=== PATIENT | female | born 1980 | race Caucasian/White ===

== ENCOUNTER 2016-11-23 08:15 | Inpatient (IN) | payer BC ==
[2016-11-20 09:32] LABS: BASOPHILS 0.4 %; BASOPHILS ABSOLUTE 0.03 10/3/uL (0.0-0.16); EOSINOPHILS 0.9 %; EOSINOPHILS ABSOLUTE 0.06 10/3/uL (0.0-0.53); HEMATOCRIT 36.6 % (36.0-48.0); HEMOGLOBIN 12.1 g/dL (12.0-16.0); IMMATURE GRANULOCYTES 0.1 %; IMMATURE GRANULOCYTES ABSOLUTE 0.01 10/3/uL (0.0-0.11); LYMPHOCYTES 29.5 %; LYMPHOCYTES ABSOLUTE 2.02 10/3/uL (0.67-4.30); MEAN CORPUS HGB CONC 33.1 g/dL (32.0-36.0); MEAN CORPUSCULAR HEMOGLOB 29.7 pg (26.0-34.0); MEAN CORPUSCULAR VOLUME 89.7 fL (80-100); MEAN PLATELET VOLUME 12.2 fL (9.2-13.0); MONOCYTES 8.5 %; MONOCYTES ABSOLUTE 0.58 10/3/uL (0.21-1.20); NEUTROPHILS 60.6 %; NEUTROPHILS ABSOLUTE 4.15 10/3/uL (2.02-8.40); PLATELET COUNT 320 10/3/uL (150-400); RBC DISTRIBUTION WIDTH 14.1 % (12.0-16.0); RED CELL COUNT 4.08 10/6/uL (4.0-5.6); WHITE BLOOD CELLS 6.9 10/3/uL (4.5-10.5)
[2016-11-20 09:33] LABS: MANUAL DIFF NO %
[2016-11-20 09:44] LABS: INTERNATIONAL NORMAL RATI 1.1 UNITS (-); PARTIAL THROMBO TIME 29.8 SEC (22.5-37.2); PROTIME (NOT ORD) 13.7 SEC (12.0-14.5)
[2016-11-20 10:08] LABS: ASCORBIC ACID (UR NOT ORDER) NEG (NEG); BILIRUBIN, URINE NEGATIVE (NEG); KETONE, URINE TRACE MG/DL (NEG); LEUKOCYTE ESTERASE(NOT OR NEG (NEG); WBC (NOT ORDERED) (RFLEX) < 1 (0-5)
[2016-11-20 10:25] LABS: A/G RATIO 1.5 (0.7-1.9); ALBUMIN 4.1 G/DL (3.5-5.0); BUN (BLOOD UREA NITROGEN) 17 MG/DL (6-23); CALCIUM, SERUM 9.3 MG/DL (8.5-10.4); CHLORIDE, SERUM 101 MMOL/L (96-112); CO2 (CARBON DIOXIDE) 32 MMOL/L (24-34); CREATININE 0.64 MG/DL (0.55-1.02); GFR AFRICAN AMERICAN 132 ML/MIN (>=60); GFR NON AFRICAN AMERICAN 114 ML/MIN (>=60); GLOBULIN 2.8 G/DL (2.5-4.1); GLUCOSE, SERUM 94 MG/DL (60-99); HDL CHOLESTEROL 48 MG/DL (> 49); IRON, SERUM 44 MCG/DL (35-150); POTASSIUM, SERUM 4.7 MMOL/L (3.5-5.3); SGOT(AST) 18 U/L (5-40); SGPT(ALT) 29 U/L (5-65); SODIUM, SERUM 137 MMOL/L (135-148); TOTAL BILIRUBIN 0.8 MG/DL (0-1.2); TOTAL PROTEIN 6.9 G/DL (6.0-8.5)
[2016-11-20 10:26] LABS: ALKALINE PHOSPHATASE 92 U/L (45-117); CHOL/HDL RATIO(NOT ORDER) 2.4 (0-5); CHOLESTEROL 115 MG/DL (< 200); FOLATE 37.1 NG/ML (>5.2); LDL CHOLESTEROL 57 MG/DL (< 130); NON-HDL CHOLESTEROL 67 MG/DL (< 160); TRIGLYCERIDE 51 MG/DL (< 150)
[~2016-11-23] VITALS: Ht 157.5 cm; Wt 110.9 kg
--- NOTE | ~2016-11-23 | HP ---
History And Physical [address] [place]. [address] NAME: LUCILLE WRIGHT : 76 STATUS : PRE IN PAT#: [id number] AGE: 35 ADM/REG DATE : MR#: [id number] REPORT SERV DATE: 11/22/16 DICTATED BY: IZAIAH HOLDEN DATE: 11/22/16 REPORT STATUS : Draft TRANSCRIBED BY: MODJose Guadalupe DATE: 11/22/16 DATE OF ADMISSION: 11/23/2016 CHIEF COMPLAINT: Morbid obesity. HISTORY OF PRESENT ILLNESS: The patient is a 35-year-old female, who presents for consideration for bariatric surgery, specifically the sleeve gastrectomy, for the treatment of morbid obesity. She is considered surgical intervention for several years after struggling with her weight for more than 15 years. She reports her current weight of 230 pounds is her maximum weight. She has tried multiple attempts at weight loss in the past including self-diet, counting calories, exercise, Weight Watchers, no soda, AdvoCare, Atkins, and joining the gym. She has successfully lost 50 pounds through her efforts. In addition to her obesity, she has a number of comorbid conditions. PAST MEDICAL HISTORY: 1. Insulin resistance. 2. Essential hypertension. 3. GERD. 4. Fibromyalgia. 5. Depression. 6. Anxiety. 7. Rheumatoid arthritis. PAST SURGICAL HISTORY: 1. Removal of adenoids in 1980. 2. Tonsillectomy 1984. 3. Right foot 3rd toe hammertoe procedure in 1997. 4. section in 2007, Pfannenstiel incision. 5. Lithotripsy. 6. Cystoscopy with stent placement in 2010. FAMILY HISTORY: The patient's family history is significant. She has a mother who has previously undergone bariatric surgery for the treatment of morbid obesity. Her mother additionally has essential hypertension and reflux disease. Her father at age 53 secondary to lung cancer. SOCIAL HISTORY: The patient is an associate level registered nurse who is . She denies EtOH use or abuse. She does report former nicotine use for about 12 years at one pack per day, she quit in 2013. CURRENT MEDICATIONS: The patient's current medications include duloxetine 60 mg, folic acid 1 mg, Lyrica 100 mg, meloxicam 15 mg, metformin ER 500 mg, methotrexate 25 mg, Orencia 125 mg, pantoprazole 40 mg, propranolol ER 80 mg, tramadol 50 mg, and Vyvanse 60 mg. She includes additional supplements of vitamin B12, biotin, vitamin D3, and magnesium. ALLERGIES: NO KNOWN DRUG ALLERGIES. History And Physical [address] [place]. [address] NAME: LUCILLE WRIGHT : 76 STATUS : PRE IN PAT#: [id number] AGE: 35 ADM/REG DATE : MR#: [id number] REPORT SERV DATE: 11/22/16 DICTATED BY: IZAIAH HOLDEN DATE: 11/22/16 REPORT STATUS : Draft TRANSCRIBED BY: JESSIE DATE: 11/22/16 REVIEW OF SYSTEMS: Please refer to HPI. PHYSICAL EXAMINATION: A 35-year-old female. VITAL SIGNS: Height 5 feet 2 inches, weight 230.4 pounds with BMI of 42.1. Vital signs are stable. The patient is afebrile. GENERAL APPEARANCE: Well nourished, morbidly obese, in no acute distress, ambulating normally. HEAD: Pupils are equal, round, and reactive to light. ENT: Within normal limits. NECK: Supple. Trachea midline. No masses. CARDIOVASCULAR: Heart auscultation, regular rate and rhythm. CHEST: No tenderness to palpation. LUNGS: Respiratory effort without dyspnea. On auscultation, no wheezing, rales, crackles, or rhonchi. Breath sounds are normal and clear to auscultation. ABDOMEN: No tenderness, guarding, or masses. ABDOMEN: Soft, obese, nondistended. Bowel sounds are normal. PSYCHIATRIC: Insight, good judgment. Mental status: Normal mood and affect. The patient is active and alert, oriented to time, place, and person. LABORATORY DATA: Labs have been completed according to pre-admission testing protocol and are within normal limits for bariatric surgery. Upper GI shows few well-circumcised round filling defects present over the proximal gastric body, which may represent small polyps. No significant fold thickening or evidence of ulcerative lesions. No hiatal hernia. ASSESSMENT AND PLAN: This patient will be admitted inpatient for bariatric surgery, specifically the sleeve gastrectomy, for the treatment of morbid obesity, with the patient having a BMI of 42.1 and a weight of 230.4 pounds and the presence of multiple comorbid conditions. According to her current height and weight, she has 120.4 pounds of excess weight. This patient fulfills the [employer] guidelines for bariatric surgery according to the 1991 consensus having either BMI of more than 40 kg/sq m or BMI between 35 and 40 kg/sq m with associated comorbidities. She has been overweight for at least 5 years and she tried options to lose weight several times and failed to maintain weight loss even with physician-supervised programs. Surgical weight loss options were presented including the Jerman-en-Y gastric bypass, biliopancreatic diversion with duodenal switch, sleeve gastrectomy, and adjustable gastric band. This patient has chosen the sleeve gastrectomy surgery because of the features of no need for adjustments and less invasive than Jerman-en-Y gastric bypass with less risk of infection. The gastric bypass was not an option for this patient because of the invasiveness of the procedure, the associated risk, and types of complications. The sleeve gastrectomy surgery in our experience can give this patient an average of 50% to 60% of excess weight loss over the next 12 to 18 months. The patient is aware of the risks and complications associated with this procedure, which include staple leak, bleeding, obstruction, and infection, which were discussed in length. Also, this patient understands the importance of followup in order to achieve good result. Finally, this patient has completed a comprehensive education session through [facility]'s History And Physical [address] [address] NAME: LUCILLE WRIGHT : 76 STATUS : PRE IN PAT#: [id number] AGE: 35 ADM/REG DATE : MR#: [id number] REPORT SERV DATE: 11/22/16 DICTATED BY: IZAIAH HOLDEN DATE: 11/22/16 REPORT STATUS : Draft TRANSCRIBED BY: JESSIE DATE: 11/22/16 Multidisciplinary team program and is ready to proceed with surgery. ANGELITO/JESSIE Izaiah Hobson M.D. / [id number] CC: Susan Silverman SUSAN R.
--- NOTE | ~2016-11-23 | OP ---
Record Of Operation [facility] [address] [place]. [address] NAME: LUCILLE WRIGHT : 76 STATUS : ADM IN PAT#: [id number] AGE: 35 ADM/REG DATE : 11/23/16 MR#: [id number] REPORT SERV DATE: 11/23/16 DICTATED BY: IZAIAH HOLDEN DATE: 11/23/16 REPORT STATUS : Draft TRANSCRIBED BY: JESSIE DATE: 11/23/16 DATE OF PROCEDURE: PREOPERATIVE DIAGNOSIS: Morbid obesity. POSTOPERATIVE DIAGNOSIS: Morbid obesity. OPERATION: Laparoscopic sleeve gastrectomy. ANESTHESIA: General endotracheal. COMPLICATIONS: None. INDICATION FOR OPERATION: This is a 35-year-old white female with morbid obesity with a BMI of 42.1 and a weight of 230.4 pounds and associated insulin resistance, hypertension, reflux disease, fibromyalgia, depression, anxiety, and arthritis. DESCRIPTION OF OPERATION: The patient was taken to the operating room, and after adequate general endotracheal anesthesia, was prepped and draped in a sterile manner. A total of 5 trocars were placed in the upper abdomen and carefully we the left lobe of the liver. Identified the upper stomach anatomy. We did remove some of the epiphrenic fat pad on top of the stomach, did not see any evidence of any hiatal hernia. The EG junction was in the intraabdominal cavity. We did proceed to enter the lesser sac at the level of the lower body of the stomach next to the greater curvature with the Harmonic Scalpel and started dissecting the greater curvature all the way up to the fundus, mobilized the fundus all the way up to the left mela. The left mela was completely dissected posteriorly and then we carefully took all the posterior adhesions and the stomach was completely mobilized in that area and then continued dissection in the greater curvature all the way down to the distal antrum to about 3 cm or so from the pylorus. Then, we introduced a 36-Belgian blunt- tip Bougie suction catheter all the way down to the distal antrum and put it on suction to delineate well the stomach and started stapling about 5 cm from the pylorus using the Glorieta automatic stapler with a green load and stapler reinforcement using the SeamGuard. We used a total of 5 staplers from the bottom to the top. Staple line looked intact. There was no evidence of bleeding or oozing. Then, we proceeded to tag the greater omentum into the staple line the top, middle, and lower portion with interrupted Vicryl 2-0 sutures and then removed the calibration tube and we put it in and out to verify there was no evidence of obstruction, then removed the stomach specimen through the 15 mm trocar site after we stretched it with a Sheree and then closed that fascial defect with an EFX fascial closure device using a Vicryl #0, and then removed all the trocars and the liver retractor under direct visualization and closed all the incisions with subcuticular Monocryl 4-0. The patient tolerated the procedure well, did not have any problems. DEANNA Record Of [address] [facility] [address] NAME: LUCILLE WRIGHT : 76 STATUS : ADM IN [facility]#: [id number] AGE: 35 ADM/REG DATE : 11/23/16 MR#: [id number] REPORT SERV DATE: 11/23/16 DICTATED BY: IZAIAH HOLDEN DATE: 11/23/16 REPORT STATUS : Draft TRANSCRIBED BY: JESSIE DATE: 11/23/16 Izaiah Hobson M.D. / [id number] CC: Izaiah Holden M.D.
[~2016-11-23 08:15] MED LIST: B12250T PO; CYMBALTA60 PO; FOLIC PO; FORTAMET500 MG PO; HYDROCHLOROT25 MG PO; INDE80LA PO; LORTAB 5 PO; LYRICA100 MG PO; MTX50 IJ; ORENCIA SQ; PR25 PO; PROTONIX PO; PROZAC40 MG PO; TRILEP300 PO; VITAMIN D31000 UNIT PO; VYVANSE60 MG PO
[2016-11-24] MEDS ORDERED: SUCR PO (12:49)
[2016-11-24] MEDS ORDERED: ZOFRAN ODT4 MG PO (12:54)
== END 2016-11-24 13:56 | disposition home or self-care (01) | DRG 621 ==
LOC: ENRESERVTM → ENRESERVDT → ENRESERV → SDC/OF 08:15 → 2SO 08:15 → PACU 12:36 → 2SO 14:17
PROVIDERS: Surgery
PROC: 0DB64Z3 Excision of Stomach, Percutaneous Endoscopic Approach, Vertical (ICD-10-PCS; principal; 2016-11-23 10:00)
DX: E66.01 Morbid (severe) obesity due to excess calories (principal); E88.81 Metabolic syndrome and other insulin resistance; Z68.41 Body mass index [BMI] 40.0-44.9, adult; I10 Essential (primary) hypertension; K21.9 Gastro-esophageal reflux disease without esophagitis; M79.7 Fibromyalgia; F41.9 Anxiety disorder, unspecified; F32.9 Major depressive disorder, single episode, unspecified; M06.9 Rheumatoid arthritis, unspecified; Z98.890 Other specified postprocedural states; Z82.49 Family history of ischemic heart disease and other diseases of the circulatory system; Z80.1 Family history of malignant neoplasm of trachea, bronchus and lung
CPT/HCPCS: 74246; 80053; 80061; 81001; 82607; 82746; 82962; 83036; 83540; 84443; 84703; 85025; 85610; 85730; 88307; 93005; A9270-GY; C9113; J0690; J2250; J2370; J2405; J2710; J2795; J3010